=== PATIENT | male | born 1950 | race Caucasian/White ===

== ENCOUNTER 2017-10-17 10:57 | Emergency (ER) | payer OTHER ==
[~2017-10-17] VITALS: Ht 180.3 cm; Wt 158.8 kg
[2017-10-17] MEDS ORDERED: ASPIR 8181 MG (11:55)
[2017-10-17] MEDS ORDERED: PRAVASTATIN SOD20 MG (11:55)
[2017-10-17] MEDS ORDERED: TAMS0.4C (11:55)
[2017-10-17] MEDS ORDERED: FISH OIL 1,0001 EAC1 (11:56)
[2017-10-17] MEDS ORDERED: DYAZIDE 37.5-21 EACH (11:56)
== END 2017-10-17 22:34 | disposition home or self-care (01) ==
LOC: ER 10:57
DX: S80.12XA Contusion of left lower leg, initial encounter (principal); L03.116 Cellulitis of left lower limb; W18.39XA Other fall on same level, initial encounter; Y93.89 Activity, other specified; Y92.89 Other specified places as the place of occurrence of the external cause; Y99.8 Other external cause status